=== PATIENT | female | born 1990 | race American Indian/Alaskan Native ===

== ENCOUNTER 2022-10-18 13:01 | Inpatient (IN) | payer OTHER ==
[2022-10-18 13:15] VITALS: BMI 24.9
[2022-10-18] MEDS ORDERED: SODIUM CHLORIDE 1,000 ML IV STA (13:33)
[2022-10-18] MEDS ORDERED: METOCLOPRAMIDE HCL INJECTION 10 MG/2 ML VIAL IVPUSH ONE ×2 (13:48→18:08)
[2022-10-18] MEDS ORDERED: ACETAMINOPHEN 1000 MG/100 ML BAG IVPB ONE ×2 (13:48→19:27)
[2022-10-18] MEDS ORDERED: METOCLOPRAMIDE HCL INJECTION 10 MG/2 ML VIAL ONE ×2 (13:57→18:08)
[2022-10-18] MEDS ORDERED: ACETAMINOPHEN INJECTION 100 ML IVPB ONE ×2 (13:58→19:10)
[2022-10-18 14:51] LABS: BASO % 0.5 % (0-2.0); EOS % 0.4 % (0-4.5); HEMATOCRIT 36.5 % (32.4-45.2); HEMOGLOBIN 12.4 GM/dL (10.7-15.3); LYMPH % 6.7 % (8-40); MCH 28.3 pg (25.7-33.7); MCHC 33.9 g/dl (32.0-36.0); MEAN CELL VOLUME 83.5 fl (80-96); MEAN PLT VOLUME 8.4 fl (7.5-11.1); MONO % 3.7 % (3.8-10.2); NEUT % 88.7 % (42.8-82.8); PLATELET COUNT 235 10^3/uL (134-434); RBC 4.38 M/mm3 (3.60-5.2); RDW 13.5 % (11.6-15.6); WHITE BLOOD COUNT 11.2 K/mm3 (4.0-10.0)
[2022-10-18 14:53] LABS: URINE APPEARANCE CLOUDY; URINE BILIRUBIN NEGATIVE (NEGATIVE); URINE COLOR YELLOW; URINE GLUCOSE (UA) NEGATIVE (NEGATIVE); URINE KETONE TRACE (NEGATIVE); URINE LEUK ESTERASE 3+ (NEGATIVE); URINE NITRITE POSITIVE (NEGATIVE); URINE PROTEIN 1+ (NEGATIVE); URINE UROBILINOGEN 0.2 mg/dL (0.2-1.0)
[2022-10-18 14:59] LABS: HCG,QUALITATIVE URINE Negative
[2022-10-18] MEDS ORDERED: morphine CARPU-JECT 2 MG/1 ML DISP.SYRIN IVPUSH ONE (15:01)
[2022-10-18 15:02] LABS: ACTIVATED PTT 31.7 SECONDS (25.2-36.5); INR 0.99 (0.83-1.09); PROTHROMBIN TIME (PATIENT) 11.5 SEC (9.7-13.0)
[2022-10-18 15:20] LABS: CALCIUM 9.1 mg/dL (8.5-10.1)
[2022-10-18 15:21] LABS: ALBUMIN 4.1 g/dl (3.4-5.0)
[2022-10-18 15:24] LABS: CREATININE 0.6 mg/dL (0.55-1.3)
[2022-10-18 15:25] LABS: BILIRUBIN,TOTAL 0.6 mg/dL (0.2-1); TOT PROT 7.5 g/dl (6.4-8.2)
[2022-10-18 15:27] LABS: EPI CELLS 3.5 /uL (0-25.1); HYALINE CASTS 0.37 /uL (0-3.1); URINE RBC 225.5 /uL (0-23.9); URINE WBC 3671.6 /uL (0-25.8)
[2022-10-18] MEDS ORDERED: CEFTRIAXONE 1,000 MG in DEXTROSE 5%-WATER - 50 ML IVPB ONE (16:29)
[2022-10-18] MEDS ORDERED: ACETAMINOPHEN 1000 MG/100 ML BAG IVPB PRN ×2 (16:59→19:14)
[2022-10-18] MEDS ORDERED: SODIUM CHLORIDE 1,000 ML IV SCH ×2 (17:00→19:14)
[2022-10-18] MEDS ORDERED: ONDANSETRON 4 MG/2 ML VIAL IVPUSH ONE (17:13)
[2022-10-18] MEDS ORDERED: ONDANSETRON 4 MG/2 ML VIAL ONE ×2 (17:24→17:29)
[2022-10-18] MEDS ORDERED: CEFTRIAXONE 1 GM/50 ML BAG ONE (17:25)
[2022-10-18] MEDS ORDERED: DEXAMETHASONE SOD PHOSPHATE 4 MG/1 ML VIAL ONE (17:29)
[2022-10-18] MEDS ORDERED: PROPOFOL 20 ML ONE (17:29)
[2022-10-18] MEDS ORDERED: SUCCINYLCHOLINE CHLORIDE 200 MG/10 ML SYRINGE ONE (17:30)
[2022-10-18] MEDS ORDERED: oxyCODONE HCL 5 MG TABLET PO PRN ×2 (17:58→19:14)
[2022-10-18] MEDS ORDERED: ACETAMINOPHEN 325 MG TABLET (FP) PO PRN ×2 (17:58→19:14)
[2022-10-18] MEDS ORDERED: LACTATED RINGERS SOLUTION 1,000 ML IV SCH (18:00)
[2022-10-18] MEDS ORDERED: GENTAMICIN 80MG PREMIX BAG IVPB ONE (18:50)
[2022-10-18] MEDS ORDERED: GENTAMICIN SO4 80 MG/2 ML VIAL ONE (18:50)
[2022-10-19] MEDS: LACTATED RINGERS SOLUTION 1,000 ML IV SCH ×2 (09:36→19:55)
[2022-10-19] MEDS ORDERED: CEFTRIAXONE 1 GM in DEXTROSE 5%-WATER - 50 ML IVPB SCH ×2 (10:00)
[2022-10-19] MEDS ORDERED: ENOXAPARIN NA (PORCINE) 40 MG/0.4 ML DISP.SYRIN SQ SCH (10:00)
[2022-10-19 10:04] LABS: BASO % 0.2 % (0-2.0); EOS % 0.1 % (0-4.5); HEMATOCRIT 28.3 % (32.4-45.2); HEMOGLOBIN 9.9 GM/dL (10.7-15.3); LYMPH % 4.1 % (8-40); MCHC 34.9 g/dl (32.0-36.0); MEAN CELL VOLUME 83.1 fl (80-96); MEAN PLT VOLUME 8.4 fl (7.5-11.1); MONO % 5.6 % (3.8-10.2); PLATELET COUNT 166 10^3/uL (134-434); RBC 3.41 M/mm3 (3.60-5.2); RDW 13.6 % (11.6-15.6); WHITE BLOOD COUNT 12.9 K/mm3 (4.0-10.0)
[2022-10-19 10:33] LABS: CALCIUM 7.8 mg/dL (8.5-10.1)
[2022-10-19 10:34] LABS: BLOOD UREA NITROGEN 9.5 mg/dL (7-18)
[2022-10-19] MEDS ORDERED: KETOROLAC TROMETHAMINE 15 MG/ML VIAL IVPUSH PRN (10:34)
[2022-10-19 10:37] LABS: CREATININE 0.7 mg/dL (0.55-1.3)
[2022-10-19 10:38] LABS: BILIRUBIN,TOTAL 0.7 mg/dL (0.2-1)
[2022-10-19 10:46] LABS: ALBUMIN 2.6 g/dl (3.4-5.0); TOT PROT 5.2 g/dl (6.4-8.2)
[2022-10-19] MEDS ORDERED: oxyCODONE HCL 5 MG TABLET PO PRN ×2 (12:14→22:02)
[2022-10-19] MEDS: ACETAMINOPHEN 1000 MG/100 ML BAG IVPB PRN ×2 (13:23→20:55)
[2022-10-19] MEDS ORDERED: PIPERACILLIN/TAZOB 3.375 GM 3.375 GM in DEXTROSE 5%-WATER - 50 ML IVPB ONE (15:22)
[2022-10-19] MEDS ORDERED: PIPERACILLIN/TAZOB 4.5 GM 4.5 GM in DEXTROSE 5%-WATER 100 ML IVPB SCH (16:30)
[2022-10-19] MEDS ORDERED: VANCOMYCIN 1 GM/200 ML PREMIX BAG (RESTRICTED TO ID ONLY) IVPB ONE (17:50)
[2022-10-19] MEDS ORDERED: morphine SULFATE 4 MG/ML VIAL IVPUSH PRN ×2 (18:17→22:02)
[2022-10-19] MEDS ORDERED: LACTATED RINGERS SOLUTION 1,000 ML IV SCH (22:02)
[2022-10-19] MEDS ORDERED: ACETAMINOPHEN 1000 MG/100 ML BAG IVPB PRN (22:02)
[2022-10-20] MEDS: PIPERACILLIN/TAZOB 4.5 GM 4.5 GM in DEXTROSE 5%-WATER 100 ML IVPB SCH ×3 (01:28→17:14)
[2022-10-20] MEDS ORDERED: POLYETHYLENE GLYCOL (HEALTHYLAX) 3350 17 GM PACKET PO SCH (02:00)
[2022-10-20] MEDS: HYDROmorphone HCl 2 MG/ML VIAL IVPUSH PRN ×2 (02:28→07:45)
[2022-10-20] MEDS: ACETAMINOPHEN 1000 MG/100 ML BAG IVPB PRN ×3 (03:41→22:10)
[2022-10-20 05:04] LABS: HEMATOCRIT 27.7 % (32.4-45.2); HEMOGLOBIN 9.7 GM/dL (10.7-15.3); MCH 29.2 pg (25.7-33.7); MCHC 34.8 g/dl (32.0-36.0); MEAN CELL VOLUME 83.9 fl (80-96); MEAN PLT VOLUME 8.4 fl (7.5-11.1); PLATELET COUNT 132 10^3/uL (134-434); RBC 3.31 M/mm3 (3.60-5.2); RDW 14.1 % (11.6-15.6); WHITE BLOOD COUNT 6.9 K/mm3 (4.0-10.0)
[2022-10-20] MEDS: LACTATED RINGERS SOLUTION 1,000 ML/1,000 ML INFUS.BAG IV SCH ×5 (05:19→22:00)
[2022-10-20] MEDS ORDERED: HYDROmorphone HCl 2 MG/ML VIAL IVPUSH PRN (08:30)
[2022-10-20 08:48] LABS: BASO % 0.7 % (0-2.0); EOS % 0.2 % (0-4.5); HEMATOCRIT 25.9 % (32.4-45.2); HEMOGLOBIN 9.2 GM/dL (10.7-15.3); LYMPH % 11.1 % (8-40); MCH 29.4 pg (25.7-33.7); MCHC 35.5 g/dl (32.0-36.0); MEAN CELL VOLUME 82.8 fl (80-96); MEAN PLT VOLUME 8.5 fl (7.5-11.1); MONO % 8.8 % (3.8-10.2); NEUT % 79.2 % (42.8-82.8); PLATELET COUNT 130 10^3/uL (134-434); RBC 3.13 M/mm3 (3.60-5.2); RDW 13.5 % (11.6-15.6); WHITE BLOOD COUNT 5.2 K/mm3 (4.0-10.0)
[2022-10-20] MEDS: ONDANSETRON 4 MG/2 ML VIAL IVPUSH PRN ×2 (09:28→22:10)
[2022-10-20] MEDS ORDERED: ENOXAPARIN NA (PORCINE) 40 MG/0.4 ML DISP.SYRIN SQ SCH (10:00)
[2022-10-20] MEDS ORDERED: FENTANYL CITRATE/PF 50 MCG/ML VIAL ONE (10:46)
[2022-10-20] MEDS ORDERED: ACETAMINOPHEN 1000 MG/100 ML BAG IVPB ONE (18:16)
[2022-10-20] MEDS ORDERED: VANCOMYCIN/WATER FOR INJ (PEG) 1,000 MG/200 ML BAG IVPB ONE (20:00)
[2022-10-21] MEDS: PIPERACILLIN/TAZOB 4.5 GM 4.5 GM in DEXTROSE 5%-WATER 100 ML IVPB SCH ×3 (00:19→15:30)
[2022-10-21] MEDS ORDERED: TRIMETHOBENZAMIDE HCL 200MG/2ML INJ IM ONE (00:37)
[2022-10-21] MEDS: ONDANSETRON 4 MG/2 ML VIAL IVPUSH PRN ×3 (04:00→22:41)
[2022-10-21] MEDS: ACETAMINOPHEN 1000 MG/100 ML BAG IVPB PRN ×2 (06:33→12:22)
[2022-10-21] MEDS: LACTATED RINGERS SOLUTION 1,000 ML/1,000 ML INFUS.BAG IV SCH (07:54)
[2022-10-21 08:14] LABS: HEMATOCRIT 31.2 % (32.4-45.2); HEMOGLOBIN 10.8 GM/dL (10.7-15.3); MCH 28.8 pg (25.7-33.7); MCHC 34.8 g/dl (32.0-36.0); MEAN CELL VOLUME 82.8 fl (80-96); PLATELET COUNT 149 10^3/uL (134-434); RBC 3.77 M/mm3 (3.60-5.2); RDW 13.5 % (11.6-15.6); WHITE BLOOD COUNT 6.2 K/mm3 (4.0-10.0)
[2022-10-21 08:23] LABS: ALBUMIN 2.7 g/dl (3.4-5.0); BLOOD UREA NITROGEN 6.8 mg/dL (7-18); CALCIUM 7.9 mg/dL (8.5-10.1); MAGNESIUM 1.6 mg/dL (1.8-2.4)
[2022-10-21 08:26] LABS: CREATININE 0.5 mg/dL (0.55-1.3); PHOSPHOROUS 1.9 mg/dL (2.5-4.9)
[2022-10-21 08:28] LABS: BILIRUBIN,TOTAL 0.6 mg/dL (0.2-1)
[2022-10-22] MEDS: PIPERACILLIN/TAZOB 4.5 GM 4.5 GM in DEXTROSE 5%-WATER 100 ML IVPB SCH ×3 (00:50→16:42)
[2022-10-22 06:51] LABS: HEMATOCRIT 25.9 % (32.4-45.2); HEMOGLOBIN 9.4 GM/dL (10.7-15.3); MCH 29.5 pg (25.7-33.7); MCHC 36.3 g/dl (32.0-36.0); MEAN CELL VOLUME 81.2 fl (80-96); MEAN PLT VOLUME 9.1 fl (7.5-11.1); PLATELET COUNT 162 10^3/uL (134-434); RDW 13.2 % (11.6-15.6); WHITE BLOOD COUNT 5.7 K/mm3 (4.0-10.0)
[2022-10-22 07:14] LABS: ALBUMIN 2.4 g/dl (3.4-5.0); BLOOD UREA NITROGEN 5.9 mg/dL (7-18); CALCIUM 7.9 mg/dL (8.5-10.1); MAGNESIUM 1.7 mg/dL (1.8-2.4)
[2022-10-22 07:17] LABS: CREATININE 0.5 mg/dL (0.55-1.3); PHOSPHOROUS 2.2 mg/dL (2.5-4.9)
[2022-10-22 07:19] LABS: BILIRUBIN,TOTAL 0.9 mg/dL (0.2-1); TOT PROT 5.4 g/dl (6.4-8.2)
[2022-10-22] MEDS ORDERED: POTASSIUM CHLORIDE ORAL LIQUID 20 MEQ/15 ML PO ONE (07:53)
[2022-10-22] MEDS ORDERED: MAGNESIUM SULF 50% (8.12 MEQ/2 ML-1 GM VIAL) IVPB ONE (07:53)
[2022-10-22] MEDS ORDERED: NAPH,MB-DB/K PH,MBDB POWDER PACKET PO ONE (07:53)
[2022-10-22] MEDS ORDERED: ACETAMINOPHEN 325 MG TABLET (FP) PO PRN (08:33)
[2022-10-22] MEDS: ACETAMINOPHEN 1000 MG/100 ML BAG IVPB PRN ×2 (08:56→16:41)
[2022-10-22] MEDS: ENOXAPARIN NA (PORCINE) 40 MG/0.4 ML DISP.SYRIN SQ SCH (09:39)
[2022-10-22] MEDS: ONDANSETRON 4 MG/2 ML VIAL IVPUSH PRN (09:39)
[2022-10-22] MEDS ORDERED: ONDANSETRON *ODT* 4 MG TABLET SL PRN (10:30)
[2022-10-22] MEDS: LACTATED RINGERS SOLUTION 1,000 ML/1,000 ML INFUS.BAG IV SCH (19:27)
[2022-10-23] MEDS: PIPERACILLIN/TAZOB 4.5 GM 4.5 GM in DEXTROSE 5%-WATER 100 ML IVPB SCH ×2 (00:29→08:59)
[2022-10-23] MEDS: ACETAMINOPHEN 1000 MG/100 ML BAG IVPB PRN ×2 (00:35→06:53)
[2022-10-23 07:16] LABS: HEMOGLOBIN 10.1 GM/dL (10.7-15.3); MCH 28.5 pg (25.7-33.7); MCHC 34.7 g/dl (32.0-36.0); MEAN PLT VOLUME 9.3 fl (7.5-11.1); PLATELET COUNT 166 10^3/uL (134-434); RBC 3.53 M/mm3 (3.60-5.2); RDW 13.6 % (11.6-15.6); WHITE BLOOD COUNT 4.3 K/mm3 (4.0-10.0)
[2022-10-23 07:36] LABS: CALCIUM 8.5 mg/dL (8.5-10.1)
[2022-10-23 07:37] LABS: ALBUMIN 2.5 g/dl (3.4-5.0); MAGNESIUM 2.2 mg/dL (1.8-2.4)
[2022-10-23 07:38] LABS: BLOOD UREA NITROGEN 6.5 mg/dL (7-18)
[2022-10-23 07:40] LABS: CREATININE 0.4 mg/dL (0.55-1.3)
[2022-10-23 07:41] LABS: PHOSPHOROUS 2.9 mg/dL (2.5-4.9)
[2022-10-23 07:42] LABS: TOT PROT 5.8 g/dl (6.4-8.2)
[2022-10-23 07:45] LABS: BILIRUBIN,TOTAL 0.6 mg/dL (0.2-1)
[2022-10-23 08:46] VITALS: BP 135/75; PULSE 52; RESP 18; TEMP 98.6
[2022-10-23] MEDS: ENOXAPARIN NA (PORCINE) 40 MG/0.4 ML DISP.SYRIN SQ SCH (09:08)
[2022-10-23] MEDS ORDERED: POTASSIUM CHLORIDE ORAL LIQUID 20 MEQ/15 ML PO ONE ×2 (09:25→12:00)
== END 2022-10-23 13:40 | disposition home or self-care (01) | DRG 710 ==
LOC: JER 13:01 → JERBED 16:56 → J7W 21:25 → J4W 10-19 20:27
PROVIDERS: ADMIT Internal Medicine; ATTEND Internal Medicine
PROC: 0T778DZ Dilation of Left Ureter with Intraluminal Device, Via Natural or Artificial Opening Endoscopic (ICD-10-PCS; 2022-10-18)
PROC: 0T9130Z Drainage of Left Kidney with Drainage Device, Percutaneous Approach (ICD-10-PCS; principal; 2022-10-20)
PROC: BT12ZZZ Fluoroscopy of Left Kidney (ICD-10-PCS; 2022-10-20)
DX: A41.9 Sepsis, unspecified organism (principal); N13.2 Hydronephrosis with renal and ureteral calculous obstruction; N39.0 Urinary tract infection, site not specified; D64.9 Anemia, unspecified; B96.20 Unspecified Escherichia coli [E. coli] as the cause of diseases classified elsewhere
CPT/HCPCS: 36415; 50432; 71045-TC-FY; 74176-TC; 76000-TC-FY; 80053; 81003; 82550; 82553; 82728; 83540; 83550; 83605; 83735; 84100; 84703; 85025; 85027; 85610; 85730; 87040; 87086; 87102; 87116; 87186; 87206; 87210; 93005; 93010; 94010; 94760; 97116-GP; 97162-GP; 99285-25; C1729; C1769; C2617; C9803-CS; Q0162; U0003; U0005

== ENCOUNTER 2022-11-12 04:05 | Day surgery (SDC) | payer OTHER ==
[2022-11-11 09:01] VITALS: BMI 25.0
[2022-11-12] MEDS ORDERED: LIDOCAINE HCL/PF 2% SDV 5ML VIAL ONE (13:06)
[2022-11-12] MEDS ORDERED: PROPOFOL 20 ML ONE ×2 (13:07→14:00)
[2022-11-12] MEDS ORDERED: MIDAZOLAM HCL 2 MG/2 ML SINGLE DOSE VIAL ONE (13:07)
[2022-11-12] MEDS ORDERED: ceFAZolin SODIUM 1 GM VIAL ONE (13:24)
[2022-11-12] MEDS ORDERED: IOHEXOL 300 MG/ML INFUS..BTL IV ONE ×2 (13:25)
[2022-11-12] MEDS ORDERED: ceFAZolin 2 GRAM PREMIX BAG IVPB ONE (13:25)
[2022-11-12] MEDS ORDERED: DEXAMETHASONE SOD PHOSPHATE 4 MG/1 ML VIAL ONE (13:31)
[2022-11-12] MEDS ORDERED: ONDANSETRON 4 MG/2 ML VIAL ONE ×2 (13:31→17:36)
[2022-11-12] MEDS ORDERED: LACTATED RINGERS SOLUTION 1,000 ML IV SCH (14:30)
[2022-11-12] MEDS ORDERED: IBUPROFEN 800 MG/8 ML IJ IVPB PRN (14:30)
[2022-11-12] MEDS ORDERED: oxyCODONE HCL 5 MG TABLET PO PRN (14:30)
[2022-11-12] MEDS ORDERED: ONDANSETRON 4 MG/2 ML VIAL IVPUSH PRN (14:30)
[2022-11-12] MEDS ORDERED: ACETAMINOPHEN 1000 MG/100 ML BAG IVPB PRN (14:30)
[2022-11-12] MEDS ORDERED: ACETAMINOPHEN 1000 MG/100 ML BAG IVPB ONE (14:42)
[2022-11-12 16:19] VITALS: RESP 18
[2022-11-12] MEDS ORDERED: oxyCODONE HCL 5 MG TABLET ONE (16:24)
[2022-11-12 17:53] VITALS: BP 115/72; PULSE 87; TEMP 97.3
== END 2022-11-12 18:15 | disposition home or self-care (01) ==
LOC: JASU-SURG 04:05
PROVIDERS: ATTEND Urology
PROC: 0TC18ZZ Extirpation of Matter from Left Kidney, Via Natural or Artificial Opening Endoscopic (ICD-10-PCS; principal; 2022-11-12 13:00)
PROC: 0T778DZ Dilation of Left Ureter with Intraluminal Device, Via Natural or Artificial Opening Endoscopic (ICD-10-PCS; 2022-11-12 13:00)
DX: N20.0 Calculus of kidney (principal)
CPT/HCPCS: 36415; 76000-TC-FY; 81025; 82360; 88300-TC; 94760; C1758; C1894; C2617

== ENCOUNTER 2022-12-29 03:59 | Day surgery (SDC) | payer OTHER ==
[2022-12-25 15:53] VITALS: BMI 26.6
[2022-12-29] MEDS ORDERED: MIDAZOLAM HCL 2 MG/2 ML SINGLE DOSE VIAL ONE (07:48)
[2022-12-29] MEDS ORDERED: PROPOFOL 20 ML ONE (07:48)
[2022-12-29] MEDS ORDERED: LIDOCAINE HCL/PF 2% SDV 5ML VIAL ONE (07:50)
[2022-12-29] MEDS ORDERED: SODIUM CHLORIDE 0.9% P/F 10 ML VIAL IJ ONE (07:50)
[2022-12-29] MEDS ORDERED: ceFAZolin SODIUM 1 GM VIAL ONE (07:50)
[2022-12-29] MEDS ORDERED: ceFAZolin SODIUM 1 GM VIAL IVPB ONE (08:00)
[2022-12-29] MEDS ORDERED: KETOROLAC TROMETHAMINE 30 MG/1 ML VIAL ONE (08:06)
[2022-12-29] MEDS ORDERED: ONDANSETRON 4 MG/2 ML VIAL ONE (08:06)
[2022-12-29 13:32] VITALS: PULSE 80; RESP 20; TEMP 97.8
[2022-12-29 13:40] VITALS: BP 118/70
== END 2022-12-29 11:20 | disposition home or self-care (01) ==
LOC: JASU-SURG 03:59
PROVIDERS: ATTEND Urology
PROC: 0TC13ZZ Extirpation of Matter from Left Kidney, Percutaneous Approach (ICD-10-PCS; principal; 2022-12-29 08:00)
DX: N20.0 Calculus of kidney (principal)
CPT/HCPCS: 81025

== ENCOUNTER 2023-01-17 10:40 | Emergency (ER) | payer OTHER ==
[2023-01-17 10:50] VITALS: BP 109/79; PULSE 90; RESP 18; TEMP 97.9; BMI 28.3
[2023-01-17] MEDS ORDERED: KETOROLAC TROMETHAMINE 30 MG/1 ML VIAL IM ONE (12:23)
[2023-01-17] MEDS ORDERED: ACETAMINOPHEN 500 MG TABLET (FP) PO ONE (12:23)
[2023-01-17] MEDS ORDERED: CYCLOBENZAPRINE HCL 10 MG TABLET (FP) PO ONE (12:24)
[2023-01-17] MEDS ORDERED: CYCLOBENZAPRINE HCL 10 MG TABLET (FP) ONE (12:30)
[2023-01-17] MEDS ORDERED: ACETAMINOPHEN 500 MG TABLET (FP) ONE (12:30)
[2023-01-17] MEDS ORDERED: KETOROLAC TROMETHAMINE 30 MG/1 ML VIAL ONE (12:30)
== END 2023-01-17 14:22 | disposition home or self-care (01) ==
LOC: JER 10:40 → JERFT 10:40
PROC: 3E0233Z Introduction of Anti-inflammatory into Muscle, Percutaneous Approach (ICD-10-PCS; principal; 2023-01-17)
DX: M54.2 Cervicalgia (principal); M25.511 Pain in right shoulder
CPT/HCPCS: 84703; 99284-25

== ENCOUNTER 2023-07-06 23:37 | Emergency (ER) | payer OTHER ==
[2023-07-06 23:47] VITALS: RESP 18; TEMP 97.8; BMI 25.7
[2023-07-06] MEDS ORDERED: ONDANSETRON 4 MG/2 ML VIAL IVPUSH ONE (23:59)
[2023-07-06] MEDS ORDERED: ACETAMINOPHEN 1000 MG/100 ML BAG IVPB ONE (23:59)
[2023-07-06] MEDS ORDERED: SODIUM CHLORIDE 0.9% 500 ML INFUS.BAG IV ONE (23:59)
[2023-07-07] MEDS ORDERED: ONDANSETRON 4 MG/2 ML VIAL ONE (00:15)
[2023-07-07] MEDS ORDERED: ACETAMINOPHEN INJECTION 100 ML IVPB ONE (00:15)
[2023-07-07 00:52] LABS: EOS % 6.3 % (0-4.5); HEMATOCRIT 39.8 % (32.4-45.2); HEMOGLOBIN 13.1 GM/dL (10.7-15.3); LYMPH % 31.3 % (8-40); MCH 27.4 pg (25.7-33.7); MCHC 32.8 g/dl (32.0-36.0); MEAN CELL VOLUME 83.5 fl (80-96); MEAN PLT VOLUME 7.5 fl (7.5-11.1); MONO % 10.8 % (3.8-10.2); NEUT % 50.6 % (42.8-82.8); PLATELET COUNT 335 10^3/uL (134-434); RBC 4.77 M/mm3 (3.60-5.2); RDW 13.7 % (11.6-15.6)
[2023-07-07 01:10] LABS: POTASSIUM 3.9 mmol/L (3.5-5.1)
[2023-07-07 01:11] LABS: CALCIUM 9.1 mg/dL (8.5-10.1)
[2023-07-07 01:12] LABS: ALBUMIN 3.7 g/dl (3.4-5.0); MAGNESIUM 2.1 mg/dL (1.8-2.4)
[2023-07-07 01:15] LABS: CREATININE 0.6 mg/dL (0.55-1.3)
[2023-07-07 01:17] LABS: BILIRUBIN,TOTAL 0.2 mg/dL (0.2-1); TOT PROT 7.5 g/dl (6.4-8.2)
[2023-07-07 01:26] LABS: BLOOD UREA NITROGEN 9.9 mg/dL (7-18)
[2023-07-07 02:32] LABS: EPI CELLS 0 /uL (0-25.1); HYALINE CASTS 0 /uL (0-3.1); URINE APPEARANCE CLEAR; URINE BACTERIA 3160 /uL (0-1359); URINE BILIRUBIN NEGATIVE (NEGATIVE); URINE COLOR YELLOW; URINE GLUCOSE (UA) NEGATIVE (NEGATIVE); URINE KETONE NEGATIVE (NEGATIVE); URINE LEUK ESTERASE 2+ (NEGATIVE); URINE NITRITE NEGATIVE (NEGATIVE); URINE PROTEIN NEGATIVE (NEGATIVE); URINE RBC 27 /uL (0-23.9); URINE UROBILINOGEN 0.2 mg/dL (0.2-1.0); URINE WBC 139 /uL (0-25.8)
[2023-07-07] MEDS ORDERED: CEFTRIAXONE 1,000 MG in DEXTROSE 5%-WATER - 50 ML IVPB ONE (05:00)
[2023-07-07] MEDS ORDERED: CEFTRIAXONE 1 GM/50 ML BAG ONE (06:19)
[2023-07-07 07:27] VITALS: BP 98/58
[2023-07-07] MEDS ORDERED: SODIUM CHLORIDE 0.9% 500 ML INFUS.BAG IV ONE (07:34)
[2023-07-07 07:37] VITALS: PULSE 81
== END 2023-07-07 09:06 | disposition home or self-care (01) ==
LOC: JER 23:37
PROC: 3E033GC Introduction of Other Therapeutic Substance into Peripheral Vein, Percutaneous Approach (ICD-10-PCS; principal; 2023-07-07)
PROC: 3E033NZ Introduction of Analgesics, Hypnotics, Sedatives into Peripheral Vein, Percutaneous Approach (ICD-10-PCS; 2023-07-07)
PROC: 3E033GC Introduction of Other Therapeutic Substance into Peripheral Vein, Percutaneous Approach (ICD-10-PCS; 2023-07-07)
DX: R10.9 Unspecified abdominal pain (principal); N39.0 Urinary tract infection, site not specified; R30.0 Dysuria; R11.0 Nausea; Z20.822 Contact with and (suspected) exposure to COVID-19
CPT/HCPCS: 0241U-QW; 36415; 74176-TC; 80053; 81003; 83735; 84703; 85025; 87086; 87186; 99284-25